=== PATIENT | female | born 1970 | race Caucasian/White ===

== ENCOUNTER 2022-03-15 11:30 | Inpatient (IN) | payer BC ==
[~2022-03-15] VITALS: Ht 160 cm; Wt 53.2 kg
[2022-03-15 11:30] VITALS: BP_SYST 136
[2022-03-15 12:38] LABS: BASOPHILS % (AUTO) 0.2 % (0.0-2.0); EOSINOPHILS % (AUTO) 0.1 % (0.0-4.0); HEMATOCRIT 29.5 % (36-48); HEMOGLOBIN 9.8 g/dL (12.0-16.0); LYMPHOCYTES # (AUTO) 0.2 K/uL (1.0-5.5); LYMPHOCYTES % (AUTO) 3.8 % (20.5-51.5); MEAN CORPUSCULAR HEMOGLOBIN 31 pg (27-31); MEAN CORPUSCULAR HGB CONC 33 % (32-36); MEAN CORPUSCULAR VOLUME 92 fL (79.0-98.0); MONOCYTES # (AUTO) 0.2 K/uL (0.0-1.0); MONOCYTES % (AUTO) 3.8 % (1.7-9.3); NEUTROPHILS # (AUTO) 4.2 K/uL (1.8-7.7); NEUTROPHILS % (AUTO) 92.1 % (40.0-70.0); PLATELET COUNT (AUTO) 481 K/uL (130-430); RED BLOOD CELL COUNT(AUTO) 3.21 MIL/uL (4.2-6.2); RED CELL DISTRIBUTION WIDTH 16.7 % (9.0-15.0); WHITE BLOOD COUNT (AUTO) 4.6 K/uL (4.8-10.8)
[2022-03-15 12:41] LABS: BILIRUBIN,URINE NEGATIVE (NEGATIVE); BLOOD, URINE 2+ (NEGATIVE); CLARITY/URINE CLEAR (CLEAR); COLOR,URINE YELLOW (YELLOW); GLUCOSE,URINE NEGATIVE (NEGATIVE); KETONES,URINE NEGATIVE (NEGATIVE); LEUKOCYTE ESTERASE ,URINE NEGATIVE (NEGATIVE); NITRITE, URINE NEGATIVE (NEGATIVE); PROTEIN URINE NEGATIVE (NEGATIVE); UROBILINOGEN,URINE 0.2 (0.2-1.0)
[2022-03-15] MEDS ORDERED: NACL 0.9% 1,000 ML IV ONE (12:45)
[2022-03-15 12:47] LABS: BACTERIA,URINE None Seen /HPF (None Seen); MUCUS,URINE None Seen /LPF (None Seen); WBC,URINE 0-3 /HPF (0-3)
[2022-03-15] MEDS ORDERED: [UNRECOGNIZED DRUG - OTHER] IV ONE (13:00)
[2022-03-15] MEDS ORDERED: ACETAMINOPHEN 325 MG TABLET PO ONE (13:00)
[2022-03-15] MEDS ORDERED: PIPERACILLIN/TAZO 3.375 GM in NS 50 ML IV ONE (13:00)
[2022-03-15] MEDS ORDERED: VANCOMYCIN HCL IV ONE (13:00)
[2022-03-15 13:19] LABS: INR 1.5 (0.8-1.2)
[2022-03-15] MEDS ORDERED: PIPERACILLIN/TAZOBACTAM 3.375 GM/VIAL (ZOSYN) IV ONE (13:25)
[2022-03-15 13:30] LABS: ANION GAP 10 (5-15); CALCIUM 8.8 mg/dL (8.4-11.0); CHLORIDE 102 mmol/L (98-107); CREATININE 0.77 mg/dL (0.55-1.30); GLUCOSE 125 mg/dL (70-99); UREA NITROGEN, BLOOD 12 mg/dL (8-21)
[2022-03-15 13:34] LABS: GFR AFRICAN AMERICAN 102 mL/min (>90)
[2022-03-15 13:37] LABS: ALANINE AMINOTRANSFERASE 40 U/L (12-78); ALBUMIN 2.5 g/dL (3.4-4.8); ASPARTATE AMINOTRANSFERASE 24 U/L (10-37); TOTAL BILIRUBIN 0.4 mg/dL (0.0-1.0)
[2022-03-15] MEDS ORDERED: ACETAMINOPHEN 325 MG TABLET ONE (15:29)
[2022-03-15] MEDS ORDERED: NALOXONE HCL 0.4 MG/ML AMP (NARCAN) IVP PRN ×2 (15:45)
[2022-03-15] MEDS ORDERED: IPRATROPIUM/ALBUTEROL SULFATE 3 ML AMPUL.NEB (DUONEB) INH PRN (15:45)
[2022-03-15] MEDS ORDERED: MUPIROCIN 2% TOPICAL OINTMENT 22 GM NS PRN (15:45)
[2022-03-15] MEDS ORDERED: MAGNESIUM SULFATE 50 ML IV PRN (15:45)
[2022-03-15] MEDS ORDERED: DOCUSATE SODIUM 100 MG CAPSULE PO PRN (15:45)
[2022-03-15] MEDS ORDERED: POTASSIUM CHLORIDE 20 MEQ TAB.PRT.SR PO PRN (15:45)
[2022-03-15] MEDS ORDERED: ONDANSETRON HCL 4 MG/2 ML VIAL IVP PRN (15:45)
[2022-03-15] MEDS ORDERED: ZOLPIDEM TARTRATE 5 MG TABLET PO PRN (15:45)
[2022-03-15] MEDS ORDERED: MORPHINE 2 MG/ML INJ. SYRINGE IVP PRN (15:45)
[2022-03-15] MEDS: NACL 0.9% 1,000 ML IV SCH (16:09)
[2022-03-15] MEDS ORDERED: VANCOMYCIN HCL 750 MG in NS 250 ML IV ONE (16:30)
[2022-03-15 17:12] VITALS: BP_SYST 137
[2022-03-15 23:30] VITALS: BP_SYST 112
[2022-03-16] VITALS (7 sets, daily range): BP systolic 105–133
[2022-03-16] MEDS: NACL 0.9% 1,000 ML IV SCH ×2 (00:12→12:38)
[2022-03-16] MEDS: LORazepam 2 MG/ML VIAL IVP PRN (00:30)
[2022-03-16 06:55] LABS: CALCIUM 7.9 mg/dL (8.4-11.0); CREATININE 0.54 mg/dL (0.55-1.30)
[2022-03-16 07:05] LABS: BASOPHILS % (AUTO) 0.4 % (0.0-2.0); EOSINOPHILS # (AUTO) 0.1 K/uL (0.0-0.4); EOSINOPHILS % (AUTO) 1.7 % (0.0-4.0); HEMATOCRIT 29.1 % (36-48); HEMOGLOBIN 9.6 g/dL (12.0-16.0); LYMPHOCYTES % (AUTO) 17.4 % (20.5-51.5); MEAN CORPUSCULAR HEMOGLOBIN 31 pg (27-31); MEAN CORPUSCULAR HGB CONC 33 % (32-36); MEAN CORPUSCULAR VOLUME 93 fL (79.0-98.0); MONOCYTES # (AUTO) 0.6 K/uL (0.0-1.0); MONOCYTES % (AUTO) 10.6 % (1.7-9.3); NEUTROPHILS # (AUTO) 3.9 K/uL (1.8-7.7); NEUTROPHILS % (AUTO) 69.9 % (40.0-70.0); PLATELET COUNT (AUTO) 562 K/uL (130-430); RED BLOOD CELL COUNT(AUTO) 3.15 MIL/uL (4.2-6.2); RED CELL DISTRIBUTION WIDTH 16.4 % (9.0-15.0); WHITE BLOOD COUNT (AUTO) 5.6 K/uL (4.8-10.8)
[2022-03-16] MEDS ORDERED: guaiFENesin/DEXTROMETHORPHAN 10 ML UDC PO PRN (09:15)
[2022-03-16] MEDS ORDERED: NITROGLYCERIN 0.4 MG TAB.SUBL SL PRN (09:30)
[2022-03-16] MEDS: MORPHINE 2 MG/ML INJ. SYRINGE IVP PRN ×3 (09:40→21:46)
[2022-03-16] MEDS ORDERED: METOCLOPRAMIDE HCL 10 MG/2 ML VIAL IVP ONE (11:22)
[2022-03-16] MEDS ORDERED: ENOXAPARIN SODIUM 40 MG/0.4 ML SYRINGE SUBCUT ONE (11:30)
[2022-03-16] MEDS ORDERED: NALOXONE HCL 0.4 MG/ML AMP (NARCAN) IVP PRN (12:30)
[2022-03-16] MEDS: PIPERACILLIN/TAZO 3.375/DEX-IS 50 ML IV SCH ×2 (12:35→18:09)
[2022-03-16] MEDS: HYDROcodone/ACETAMIN 10-325 MG TAB PO PRN ×2 (12:35→18:09)
[2022-03-16] MEDS: ONDANSETRON HCL 4 MG/2 ML VIAL IVP PRN ×2 (14:05→18:09)
[2022-03-16] MEDS: AZITHROMYCIN 500 MG in NS 250 ML IV SCH (14:06)
[2022-03-16] MEDS: METOCLOPRAMIDE HCL 10 MG/2 ML VIAL IVP SCH ×2 (15:20→21:44)
[2022-03-16] MEDS: MICAFUNGIN SODIUM 50 MG in NS 50 ML IV SCH (15:21)
[2022-03-16] MEDS: IPRATROPIUM/ALBUTEROL SULFATE 3 ML AMPUL.NEB (DUONEB) INH SCH ×2 (19:00→19:39)
[2022-03-17] MEDS: PIPERACILLIN/TAZO 3.375/DEX-IS 50 ML IV SCH ×2 (01:27→11:37)
[2022-03-17 04:45] VITALS: BP_SYST 127
[2022-03-17] MEDS: NACL 0.9% 1,000 ML IV SCH ×2 (04:47→20:00)
[2022-03-17] MEDS: IPRATROPIUM/ALBUTEROL SULFATE 3 ML AMPUL.NEB (DUONEB) INH SCH ×5 (07:00→23:00)
[2022-03-17 07:06] LABS: BASOPHILS % (AUTO) 0.1 % (0.0-2.0); EOSINOPHILS % (AUTO) 0.1 % (0.0-4.0); HEMATOCRIT 28.2 % (36-48); HEMOGLOBIN 9.2 g/dL (12.0-16.0); LYMPHOCYTES # (AUTO) 0.6 K/uL (1.0-5.5); LYMPHOCYTES % (AUTO) 15.7 % (20.5-51.5); MEAN CORPUSCULAR HEMOGLOBIN 30 pg (27-31); MEAN CORPUSCULAR HGB CONC 33 % (32-36); MEAN CORPUSCULAR VOLUME 92 fL (79.0-98.0); MONOCYTES # (AUTO) 0.4 K/uL (0.0-1.0); MONOCYTES % (AUTO) 11.5 % (1.7-9.3); NEUTROPHILS # (AUTO) 2.7 K/uL (1.8-7.7); NEUTROPHILS % (AUTO) 72.6 % (40.0-70.0); PLATELET COUNT (AUTO) 534 K/uL (130-430); RED BLOOD CELL COUNT(AUTO) 3.06 MIL/uL (4.2-6.2); WHITE BLOOD COUNT (AUTO) 3.7 K/uL (4.8-10.8)
[2022-03-17 07:07] LABS: CALCIUM 8.1 mg/dL (8.4-11.0); CREATININE 0.49 mg/dL (0.55-1.30)
[2022-03-17 08:00] VITALS: BP_SYST 117
[2022-03-17] MEDS: ENOXAPARIN SODIUM 40 MG/0.4 ML SYRINGE SUBCUT SCH (08:25)
[2022-03-17] MEDS ORDERED: POTASSIUM CHLORIDE 40 MEQ, LIDOCAINE JECT 2% PF 100 MG 50 MG in NS 250 ML IV ONE (08:45)
[2022-03-17 12:00] VITALS: BP_SYST 146
[2022-03-17] MEDS: METOCLOPRAMIDE HCL 10 MG/2 ML VIAL IVP SCH ×2 (13:36→20:53)
[2022-03-17] MEDS: AZITHROMYCIN 500 MG in NS 250 ML IV SCH (13:36)
[2022-03-17] MEDS: MICAFUNGIN SODIUM 50 MG in NS 50 ML IV SCH (14:00)
[2022-03-17 16:00] VITALS: BP_SYST 125
[2022-03-17] MEDS: CEFEPIME 2 GM in D5W 100 ML IV SCH (20:52)
[2022-03-17] MEDS: LORazepam 2 MG/ML VIAL IVP PRN (22:58)
[2022-03-17 23:31] VITALS: BP_SYST 130
[2022-03-18] MEDS: IPRATROPIUM/ALBUTEROL SULFATE 3 ML AMPUL.NEB (DUONEB) INH SCH ×3 (03:00→11:00)
[2022-03-18 04:30] VITALS: BP_SYST 125
[2022-03-18] MEDS: METOCLOPRAMIDE HCL 10 MG/2 ML VIAL IVP SCH ×2 (06:27→13:07)
[2022-03-18] MEDS: NACL 0.9% 1,000 ML IV SCH (06:27)
[2022-03-18 07:00] LABS: BASOPHILS % (AUTO) 0.1 % (0.0-2.0); EOSINOPHILS % (AUTO) 0.4 % (0.0-4.0); HEMATOCRIT 29.6 % (36-48); HEMOGLOBIN 9.7 g/dL (12.0-16.0); LYMPHOCYTES # (AUTO) 0.8 K/uL (1.0-5.5); LYMPHOCYTES % (AUTO) 12.8 % (20.5-51.5); MEAN CORPUSCULAR HEMOGLOBIN 30 pg (27-31); MEAN CORPUSCULAR HGB CONC 33 % (32-36); MEAN CORPUSCULAR VOLUME 91 fL (79.0-98.0); MONOCYTES # (AUTO) 0.6 K/uL (0.0-1.0); MONOCYTES % (AUTO) 9.5 % (1.7-9.3); NEUTROPHILS % (AUTO) 77.2 % (40.0-70.0); PLATELET COUNT (AUTO) 541 K/uL (130-430); RED BLOOD CELL COUNT(AUTO) 3.25 MIL/uL (4.2-6.2); RED CELL DISTRIBUTION WIDTH 15.9 % (9.0-15.0); WHITE BLOOD COUNT (AUTO) 6.5 K/uL (4.8-10.8)
[2022-03-18 07:02] LABS: CALCIUM 7.4 mg/dL (8.4-11.0); CREATININE 0.45 mg/dL (0.55-1.30)
[2022-03-18] MEDS: ENOXAPARIN SODIUM 40 MG/0.4 ML SYRINGE SUBCUT SCH (08:50)
[2022-03-18] MEDS: CEFEPIME 2 GM in D5W 100 ML IV SCH (08:54)
[2022-03-18] MEDS ORDERED: methylPREDNISolone SOD SUCC/PF 62.5 MG/ML VIAL IVP SCH (09:00)
[2022-03-18] MEDS ORDERED: AMOX-423 PO (09:11)
[2022-03-18] MEDS ORDERED: POTASSIUM CHLORIDE 20 MEQ TAB.PRT.SR PO ONE (09:15)
[2022-03-18] MEDS ORDERED: MAGNESIUM SULFATE 50 ML IV ONE (09:15)
[2022-03-18] MEDS: ACETAMINOPHEN 325 MG TABLET PO PRN ×2 (09:19→10:40)
[2022-03-18 09:49] VITALS: BP_SYST 125
[2022-03-18] MEDS: HYDROcodone/ACETAMIN 10-325 MG TAB PO PRN ×2 (11:04→12:51)
[2022-03-18] MEDS: AZITHROMYCIN 500 MG in NS 250 ML IV SCH (13:06)
[2022-03-18] MEDS: MICAFUNGIN SODIUM 50 MG in NS 50 ML IV SCH (13:06)
[2022-03-18 14:59] VITALS: BP_SYST 128
[2022-03-18] MEDS ORDERED: POTASSIUM CHLORIDE 20 MEQ TAB.PRT.SR PO SCH (21:00)
[2022-03-19 21:06] LABS: MYCOPLASMA PNEUMONIAE IgM <770 U/mL (0-769)
== END 2022-03-18 16:07 | disposition home or self-care (01) | DRG 193 ==
LOC: SED 11:30 → STU 14:25
PROVIDERS: ADMIT General Practice; ATTEND General Practice
DX: J18.9 Pneumonia, unspecified organism (principal); J96.01 Acute respiratory failure with hypoxia; C79.51 Secondary malignant neoplasm of bone; E44.0 Moderate protein-calorie malnutrition; D84.9 Immunodeficiency, unspecified; C50.919 Malignant neoplasm of unspecified site of unspecified female breast; E87.6 Hypokalemia; D63.8 Anemia in other chronic diseases classified elsewhere; Z20.822 Contact with and (suspected) exposure to COVID-19; Z90.13 Acquired absence of bilateral breasts and nipples; Z86.711 Personal history of pulmonary embolism; Z87.891 Personal history of nicotine dependence; Z80.3 Family history of malignant neoplasm of breast; Z85.3 Personal history of malignant neoplasm of breast; Z68.20 Body mass index [BMI] 20.0-20.9, adult
CPT/HCPCS: 36415; 71045; 71275; 76376; 80048; 80053; 81000; 83036; 83605; 83735; 83880; 84132; 84484; 85025; 85610-TC; 85730-TC; 86635; 86738; 87040; 87086; 87305; 87497; 87529; 93005; 94640; 94760; 99285; G0378; J0456; J0692; J1650; J2060; J2270; J2405; J2543; J2765; J2930; J3370; J3475; J3480; J7030; J7050; J7060; Q9967; U0003